=== PATIENT | male | born 1965 | race Caucasian/White ===

== ENCOUNTER 2017-12-13 12:19 | Emergency (ER) | payer OTHER ==
[~2017-12-13] VITALS: Ht 172.7 cm; Wt 74.8 kg
[~2017-12-13 12:19] MED LIST: PROTONIX40 M3 PO
--- NOTE | 2017-12-13 12:32 | ED GENERAL ADULT ---
History of Present Illness General Chief Complaint: Dyspnea (COPD, CHF, Other) Stated Complaint: SOB Source: patient, family Exam Limitations: no limitations Vital Signs & Intake/Output Vital Signs & Intake/Output Vital Signs Date Time Temp Pulse Resp B/P B/P Pulse O2 O2 Flow FiO2 Mean Ox Delivery Rate 12/13 1359 92 20 147/83 92 Room Air 12/13 1340 92 Nasal 2.0L Cannula 12/13 1324 92 Nasal 2.0L Cannula 12/13 1231 Nasal 2.0L Cannula 12/13 1224 97.1 85 30 138/91 92 Room Air ED Intake and Output 12/14 0000 12/13 1200 Intake Total Output Total Balance Patient 165 lb Weight Weight Reported by Patient Measurement Method Allergies Coded Allergies: naproxen (From NAPROSYN) (Severe, TONGUE 12/13/17) Triage Note: C/O SOB X 2 DAYS, WORSE THIS AM. DENIES PAIN. Triage Nurses Notes Reviewed? yes HPI: This is a 52-year-old male with history of remote smoking, frequent bronchitis, presented to the emergency department with several days of worsening shortness of breath which became acutely worse today in the setting of some mild physical exertion in the hot humidity. Patient states that he frequently has these attacks, as much as 5 times per year. He has not been smoking for the past 20- 30 years. He does occasionally smoke marijuana. He denies any history of asthma. He has no primary care doctor, nor does he take any medications. He complains of mild sputum production, denies any chest pain. He does note some wheezing. He denies any nausea or vomiting, diaphoresis, headache, dizziness. He has had no recent travel/trauma/other illness. He has no history of blood clot. (Ren MÁRQUEZ,Bennett) Reconcile Medications Albuterol Sulfate (Proair Hfa) 90 MCG HFA.AER.AD 2 INH INH Q4 HRS NEEDED PRN wheezing Azithromycin (Zithromax) 250 MG TABLET 1 TAB PO DAILY bronchitis start taking on 12/14 Cholecalciferol (Vitamin D3) (Vitamin D) (Unknown Strength) CAPSULE (Unknown Dose) PO DAILY SUPPLEMENT (Reported) Multiple Vitamin (Multivitamins) 1 EACH TABLET 1 TAB PO DAILY SUPPLEMENT ( Reported) Prednisone (Deltasone) 20 MG TABLET 3 TAB PO DAILY WHEEZING BEGIN TOMORROW (Anuradha MÁRQUEZ,[facility]) Past History Travel History Traveled to [place] past 21 day No Medical History Any Pertinent Medical History? see below for history Neurological: NONE EENT: NONE Cardiovascular: NONE Respiratory: bronchitis Gastrointestinal: NONE Hepatic: NONE Renal: NONE Musculoskeletal: NONE Psychiatric: NONE Endocrine: NONE Blood Disorders: NONE Cancer(s): NONE REGULATORY SPECIALIST/Reproductive: NONE Surgical History Surgical History: non-contributory Psychosocial History What is your primary language Tuvaluan Tobacco Use: Never used ETOH Use: occasional use Family History Hx Contributory? No (Bennett Mcclure MD) Review of Systems Review of Systems Constitutional: Reports: no symptoms. EENTM: Reports: no symptoms. Respiratory: Reports: cough, short of breath, sputum production, wheezing. Cardiovascular: Reports: no symptoms. GI: Reports: no symptoms. Musculoskeletal: Reports: no symptoms. Skin: Reports: no symptoms. Neurological/Psychological: Reports: no symptoms. (Bennett Mcclure MD) Physical Exam Physical Exam General Appearance: well developed/nourished, no apparent distress, alert, awake Head: atraumatic Eyes: Bilateral: normal appearance. Ears, Nose, Throat: normal pharynx, normal ENT inspection, hearing grossly normal Neck: normal inspection, supple, full range of motion Respiratory: chest non-tender, no respiratory distress, wheezing Cardiovascular: regular rate/rhythm, normal peripheral pulses Gastrointestinal: soft, non-tender Rectal: deferred Back: normal inspection, normal range of motion Extremities: normal inspection, normal capillary refill, normal range of motion, no edema Comments: Middle-aged male, no acute distress, some pursed lip breathing, diffuse inspiratory and expiratory wheezing with prolonged expiratory phase. Some faint scattered crackles. No pedal edema, leg swelling. Core Measures ACS in differential dx? Yes CVA/TIA Diagnosis: No Sepsis Present: No Sepsis Focused Exam Completed? No (Bennett Mcclure MD) Progress Differential Diagnoses I considered the following diagnoses in my evaluation of the patient: Recurrent/ chronic bronchitis, reactive airway exacerbation, pneumonia, atypical pneumonia, lower suspicion for ACS although will address possibility with troponin 1, EKG. Very low suspicion for pulmonary embolism, thoracic aortic disease. Doubt also severe metabolic derangement/anemia. Low suspicion for foreign body. Plan of Care: Orders Procedure Date/time Status TROPONIN LEVEL 12/13 1239 Complete COMPREHENSIVE METABOLIC PANEL 12/13 1239 Complete CBC WITHOUT DIFFERENTIAL 12/13 1239 Complete B-TYPE NATRIURETIC PEP (BNP) 12/13 1239 Complete EKG 12/13 1239 Active Laboratory Tests 12/13/17 1304: Anion Gap 14, Estimated GFR > 60, BUN/Creatinine Ratio 28.8 H, Glucose 101 H, Calcium 9.1, Total Bilirubin 0.5, AST 22, ALT 29, Alkaline Phosphatase 65, Troponin I < 0.01, Zga-C-Petlbzvmasi Pept 41.3, Total Protein 7.5, Albumin 4.6, Globulin 2.9, Albumin/Globulin Ratio 1.6, CBC w Diff NO MAN DIFF REQ, RBC 5.02, MCV 88.4, MCH 29.3, MCHC 33.1, RDW 13.3, MPV 8.9, Gran % 62.1, Lymphocytes % 14.0 L, Monocytes % 5.1, Eosinophils % 18.2 H, Basophils % 0.6, Absolute Granulocytes 6.4, Absolute Lymphocytes 1.4, Absolute Monocytes 0.5, Absolute Eosinophils 1.9, Absolute Basophils 0.1 Plan for symptom management with DuoNeb, steroids, azithromycin. Will check EKG , troponin, basic labs, chest x-ray, plan for reassessment, likely discharge. Labs are reassuring. Chest x-ray is clear. Patient much improved after DuoNeb is able to walk the department without difficulty. He states that he feels "much better". He is discharged home with return precautions and follow-up instructions in addition to full course of prednisone and azithromycin and a MDI albuterol. Initial ED EKG: normal axis, normal intervals, normal p-waves, normal QRS complex, normal sinus rhythm, no ST T wave changes (Ren MÁRQUEZ,Bennett) Departure Departure Time of Disposition: 1428 Disposition: HOME OR SELF CARE Condition: Stable Clinical Impression Primary Impression: Reactive airway disease with acute exacerbation Referrals: Patient Has No Primary Care Dr (PCP/Family) Additional Instructions: Thank you for coming to [facility] today. We recommend that you take 4 more days of prednisone and a full course of azithromycin in addition to using an albuterol inhaler every 4 hours as needed for shortness of breath. Please return to the emergency department if you develop worsening symptoms or you need your inhaler more than once every 4 hours. As we discussed, please establish primary care follow-up this week with your doctor of choice. It is possible that they may start you on a long-term controller type medication for recurrent bronchitis. Departure Forms: Customer Survey General Discharge Information Prescriptions: Current Visit Scripts Albuterol Sulfate (Proair Hfa) 2 INH INH Q4 HRS NEEDED PRN wheezing #1 INHAL Azithromycin (Zithromax) 1 TAB PO DAILY #5 TAB start taking on 12/14 Prednisone (Deltasone) 3 TAB PO DAILY #12 TAB BEGIN TOMORROW (Bennett Mcclure MD) PA/CHRONOMETER ASSEMBLER Co-Sign Statement Statement: ED Attending supervision documentation- [] I saw and evaluated the patient. I have also reviewed all the pertinent lab results and diagnostic results. I agree with the findings and the plan of care as documented in the PA's/CHRONOMETER ASSEMBLER's documentation. [X] I have reviewed the ED Record and agree with the PA's/CHRONOMETER ASSEMBLER's documentation. [] Additions or exceptions (if any) to the PAs/CHRONOMETER ASSEMBLER's note and plan are summarized below: [] (Anuradha MÁRQUEZ,[facility]) Critical Care Note Critical Care Note Critical Care Time: non-applicable (Bennett Mcclure MD)
[2017-12-13 13:09] LABS: ABSOLUTE BASOPHIL COUNT 0.1 /CUMM (0.0-0.2); ABSOLUTE EOSINOPHIL COUNT 1.9 /CUMM (0.0-0.7); ABSOLUTE GRANULOCYTE CT 6.4 /CUMM (1.4-6.5); ABSOLUTE LYMPH COUNT 1.4 /CUMM (1.2-3.4); ABSOLUTE MONOCYTE COUNT 0.5 /CUMM (0.10-0.60); BASOPHIL % 0.6 % (0.0-2.0); GRANULOCYTE % 62.1 % (42.2-75.2); HEMATOCRIT 44.4 % (42-52); MEAN CORPUSCULAR HGB 29.3 PG (27.0-31.0); MEAN CORPUSCULAR HGB CONC 33.1 G/DL (33.0-37.0); MEAN CORPUSCULAR VOLUME 88.4 FL (80.0-94.0); MEAN PLATELET VOLUME 8.9 FL (7.4-10.4); PLATELET COUNT 237 /CUMM (130-400); RBC DISTRIBUTION WIDTH 13.3 % (11.5-14.5); RED BLOOD CELL CT 5.02 /CUMM (4.70-6.10); WHITE BLOOD CELL COUNT 10.3 /CUMM (4.8-10.8)
--- NOTE | 2017-12-13 13:20 | RADIOLOGY REPORT ---
EXAMINATION: XR CHEST CLINICAL INFORMATION: Hypoxia, shortness of breath, wheezing COMPARISON: 04/04/2016 TECHNIQUE: 2 views of the chest were obtained. FINDINGS: Lungs are clear. No focal consolidation or mass. Normal pulmonary vascularity. No pleural effusion or pneumothorax. Normal heart size. Regional skeleton intact. IMPRESSION: No acute pulmonary disease.
[2017-12-13] MEDS ORDERED: MULTIVITAMINS1 EAC9 PO (13:39)
[2017-12-13] MEDS ORDERED: VITAMIN D2000 UNIT PO (13:40)
[2017-12-13 13:51] LABS: EOSINOPHIL % 18.2 % (0-5)
[2017-12-13 13:59] VITALS: BP 147/83
[2017-12-13] MEDS ORDERED: DELTASONE20 MG PO (14:33)
[2017-12-13] MEDS ORDERED: ZITHROMAX250 M2 PO (14:33)
[2017-12-13] MEDS ORDERED: PROAIR HFA8.5 GM INH (14:33)
== END 2017-12-13 14:38 ==
LOC: ERH 12:19
PROVIDERS: Student in an Organized Health Care Education/Training Program
DX: J45.901 Unspecified asthma with (acute) exacerbation (principal); Z87.891 Personal history of nicotine dependence; R06.02 Shortness of breath
CPT/HCPCS: 1263; 71046; 93005; 93010; J0456